=== PATIENT | female | born 1975 | race Caucasian/White ===

== ENCOUNTER 2023-05-12 14:01 | Emergency (ER) | payer OTHER ==
[2023-05-12 14:14] VITALS: TEMP 98.2
--- NOTE | 2023-05-12 14:26 | ERPHSYRPT ---
- History of Present Illness Time Seen by Provider: 05/12/23 14:02 Source: patient Exam Limitations: no limitations Patient Subjective Stated Complaint: PT states "I had a horrible headache last night and it would not go away. IT was on the left posterior christian area. I do not normally have headaches and it just felt odd. I went to the dr and my blood pressure was up and they sent me here" Triage Nursing Assessment: Pt presented alert and oriented X 3, skin pwd. Pt ambulates with an upright steady gait, able to speak in clear full sentences. PT resting comfortably on the bed at this time. Physician History: Headache posterior left side. Started last night. No history of chronic headaches. She is most worried stroke today. Went to her doctor's office and had an elevated blood pressure. Therefore sent over here. Patient's blood pressure still elevated. No history of cardiac problems she is not on any blood pressure medication. No falls or other trauma. States he does not have a history of migraines. This is all new. No fever, chills, generalized malaise. Allergies/Adverse Reactions: cephalexin monohydrate [From Mobile Messenger] Allergy (Severe, Verified 06/18/15 21:12) Difficulty Breathing Home Medications: No Reportable Medications [No Reported Medications] 02/19/21 [History] Hx Tetanus, Diphtheria Vaccination/Date Given: Yes Hx Influenza Vaccination/Date Given: No Hx Pneumococcal Vaccination/Date Given: No Immunizations Up to Date: No Travel Risk - International Travel Have you traveled outside of the country in past 3 weeks: No - Coronavirus Screening Are you exhibiting any of the following symptoms?: No Close contact with a COVID-19 positive Pt in past 14-21 Days: No - Vaccine Status Have you recieved a Covid-19 vaccination: No - Past Medical History Pertinent Past Medical History: No Neurological History: No Pertinent History ENT History: No Pertinent History Cardiac History: No Pertinent History Respiratory History: No Pertinent History Endocrine Medical History: No Pertinent History Musculoskeletal History: No Pertinent History GI Medical History: No Pertinent History History: No Pertinent History Psycho-Social History: No Pertinent History Female Reproductive Disorders: No Pertinent History - Past Surgical History Past Surgical History: No Neuro Surgical History: No Pertinent History Cardiac: No Pertinent History Respiratory: No Pertinent History Gastrointestinal: No Pertinent History Genitourinary: No Pertinent History Musculoskeletal: No Pertinent History Female Surgical History: No Pertinent History Other Surgical History: BREAST REDUCTION. eye surgery - Female History Hx Last Menstrual Period: hysterectomy Hx Now: No - Social History Smoking Status: Former smoker Exposure to second hand smoke: Yes Drug Use: none Patient Lives Alone: No - Nursing Vital Signs Nursing Vital Signs: Initial Vital Signs Temperature 98.2 F 05/12/23 14:08 Pulse Rate 77 05/12/23 14:08 Respiratory Rate 18 05/12/23 14:08 Blood Pressure 172/100 05/12/23 14:08 O2 Sat by Pulse Oximetry 98 05/12/23 14:08 Pain Scale Pain Intensity 2 - Physical Exam SpO2 Interpretation: normal SpO2: 98 Comments: 05/12/23 14:24 Review of Systems Constitutional: Negative for fever. HENT: Negative for congestion. Respiratory: Negative for shortness of breath. Cardiovascular: Negative for chest pain. Gastrointestinal: Negative for abdominal pain. Genitourinary: Negative for dysuria. Musculoskeletal: Negative for back pain. Skin: Negative for rash. Neurological: Negative for headaches. Psychiatric/Behavioral: Negative for behavioral problems. All other systems reviewed and are negative. Physical Exam Vitals signs and nursing note reviewed. Constitutional: Appearance: Patient is well-developed. HENT: Head: Normocephalic and atraumatic. Eyes: Conjunctiva/sclera: Conjunctivae normal. Neck: Musculoskeletal: Normal range of motion. Trachea: No tracheal deviation. Cardiovascular: Rate and Rhythm: Normal rate. Pulmonary: Effort: Pulmonary effort is normal. No respiratory distress. Abdominal: Palpations: Abdomen is soft. Musculoskeletal: General: No deformity. Skin: General: Skin is warm and dry. Neurological/ Psychiatric: Mental Status: Mental status, behavior, interaction with environment is appropriate for patient's age and condition Motor: There is no pronator drift of out-stretched arms. Muscle bulk and tone are normal. Strength is full bilaterally. Reflexes: Reflexes are 2+ and symmetric at the biceps, triceps, knees, and an kles. Plantar responses are flexor. Sensory: Light touch sense are intact in bilateral upper and lower extremities. There is no sign of neglect. Coordination: Rapid alternating movements are intact. There is no dysmetria on [id number] and [id number]. There are no abnormal or extraneous mov ements. Romberg is absent. Gait/Stance: Posture is normal, patient is ambultory without difficuly to bed - Course Nursing assessment & vital signs reviewed: Yes EKG Interpreted by Me: Sinus Rhythm Ordered Tests: Active Orders 24 hr Category Date Time Status EKG-ER Only STAT Care 05/12/23 14:22 Active IV Insertion STAT Care 05/12/23 14:22 Active HEAD WITHOUT CONTRAST [CT] Stat Exams 05/12/23 14:23 Completed CBC W DIFF Stat Lab 05/12/23 14:40 Completed CMP Stat Lab 05/12/23 14:40 Completed LIPASE Stat Lab 05/12/23 14:40 Completed TROPONIN Q4H Lab 05/12/23 14:40 Completed TROPONIN Q4H Lab 05/12/23 18:30 Ordered TROPONIN Q4H Lab 05/12/23 22:30 Ordered Medication Summary Discontinued Medications Generic Name Dose Route Start Last Admin Trade Name Freq PRN Reason Stop Dose Admin Diphenhydramine HCl 25 mg 05/12/23 14:22 05/12/23 14:57 Diphenhydramine Hcl 50 Mg/Ml Vial IV 05/12/23 14:23 25 mg STAT ONE Administration Diphenhydramine HCl Confirm 05/12/23 14:52 Diphenhydramine Hcl 50 Mg/Ml Vial Administered 05/12/23 14:53 Dose 50 mg .ROUTE .STK-MED ONE Droperidol 1.25 mg 05/12/23 14:22 05/12/23 14:57 Droperidol 5 Mg/2 Ml Vial IV 05/12/23 14:23 1.25 mg STAT ONE Administration Droperidol Confirm 05/12/23 14:52 Droperidol 5 Mg/2 Ml Vial Administered 05/12/23 14:53 Dose 5 mg .ROUTE .STK-MED ONE Sodium Chloride 1,000 mls @ 999 mls/hr 05/12/23 14:22 05/12/23 16:04 Sodium Chloride 0.9% 1000 Ml IV 05/12/23 15:22 Infused .Q1H1M STA Infusion Sodium Chloride Confirm 05/12/23 14:52 Sodium Chloride 0.9% 1000 Ml Administered 05/12/23 14:53 Dose 1,000 mls @ ud .ROUTE .STK-MED ONE Ketorolac Tromethamine 30 mg 05/12/23 14:22 05/12/23 14:57 Ketorolac Tromethamine 30 Mg/Ml Inj IV 05/12/23 14:23 30 mg STAT ONE Administration Ketorolac Tromethamine Confirm 05/12/23 14:52 Ketorolac Tromethamine 30 Mg/Ml Inj Administered 05/12/23 14:53 Dose 30 mg .ROUTE .STK-MED ONE Lab/Rad Data: Laboratory Result Diagrams 05/12/23 14:40 05/12/23 14:40 Laboratory Results 05/12/23 05/12/23 05/12/23 Range/Units 14:40 14:40 14:40 WBC 7.3 (4.0-10.5) x10^3/uL RBC 3.84 L (4.1-5.4) x10^6/uL Hgb 12.4 (12.0-16.0) g/dL Hct 36.1 (35-47) % MCV 94.0 (78-100) fL MCH 32.3 H (26-32) pg MCHC 34.3 (32-36) g/dL RDW 12.4 (11.5-14.0) % Plt Count 351 (150-450) x10^3/uL MPV 9.5 (7.5-11.0) fL Gran % 65.1 (36.0-66.0) % Immature Gran % (Auto) 0.3 (0.00-0.4) % Nucleat RBC Rel Count 0.0 (0.00-0.1) % Eos # (Auto) 0.08 (0-0.5) x10^3/uL Immature Gran # (Auto) 0.02 (0.00-0.03) x10^3u/L Absolute Lymphs (auto) 1.94 (1.0-4.6) x10^3/uL Absolute Monos (auto) 0.45 (0.0-1.3) x10^3/uL Absolute Nucleated RBC 0.00 (0.00-0.01) x10^3u/L Lymphocytes % 26.5 (24.0-44.0) % Monocytes % 6.2 (0.0-12.0) % Eosinophils % 1.1 (0.00-5.0) % Basophils % 0.8 (0.0-0.4) % Absolute Granulocytes 4.76 (1.4-6.9) x10^3/uL Basophils # 0.06 (0-0.4) x10^3/uL Sodium 142 (135-145) mmol/L Potassium 3.9 (3.5-5.1) mmol/L Chloride 110 H (98-107) mmol/L Carbon Dioxide 20 L (22-30) mmol/L Anion Gap 15.8 H (5-15) MEQ/L BUN 16 (7-17) mg/dL Creatinine 0.64 (0.52-1.04) mg/dL Estimated GFR 109.6 ML/MIN Glucose 116 H (74-106) mg/dL Calcium 9.0 (8.4-10.2) mg/dL Total Bilirubin 0.10 L (0.2-1.3) mg/dL AST 19 (14-36) U/L ALT 14 (0-35) U/L Alkaline Phosphatase 65 (38-126) U/L Troponin I < 0.012 (0.000-0.034) ng/mL Serum Total Protein 8.3 H (6.3-8.2) g/dL Albumin 4.3 (3.5-5.0) g/dL Lipase 120 (23-300) U/L - Progress Progress: improved Progress Note: 05/12/23 14:25 Differential diagnosis includes: PNA, STEMI, NSTEMI, other infection, musculoskeletal pain, pneumothorax, stroke - We'll obtain basic labs, fluids, EKG, troponin, chest x-ray - EKG shows no ST changes - my read - O2 saturations consistently greater than 95%. - CXR shows no pneumonia, pneumothorax - my read - head CT for acute stroke - migraine cocktail 05/12/23 16:59 Patient feels improved with migraine cocktail. Rates the headache as a 2 out of 10 at this point in time. Patient's blood pressure is improved without any antihypertensives. I do believe that improves because we treated her pain and she was more relaxed in the emergency department. Last reading was 146/88. Head CT shows no signs of stroke, intracranial issue, head bleed. Overall, patient looks much improved she will call for a ride home given that we have given her IV Benadryl and droperidol. She will follow-up with her PCP for reexam this week. She will return here sooner for any new or changing symptoms. I did discuss all results and findings with the patient. She states understanding will follow-up as described. Counseled pt/family regarding: lab results, diagnosis, need for follow-up, rad results - Departure Departure Disposition: Home Clinical Impression: Headache, Elevated blood pressure reading Condition: Stable Critical Care Time: No Referrals: DUY SINGH NP [Primary Care Provider] - Follow up/PCP as directed Instructions: Headache, Adult (DC)
[2023-05-12 14:48] LABS: Absolute Neutrophil Ct (ANC) 4.76 x10^3/uL (1.4-6.9); BASOPHIL % 0.8 % (0.0-0.4); Basophil (Absolute #) 0.06 x10^3/uL (0-0.4); Eosinophil % 1.1 % (0.00-5.0); Eosinophil (Absolute #) 0.08 x10^3/uL (0-0.5); Hematocrit 36.1 % (35-47); Hemoglobin 12.4 g/dL (12.0-16.0); IMMATURE GRAN # 0.02 x10^3u/L (0.00-0.03); IMMATURE GRAN % 0.3 % (0.00-0.4); Lymphocyte (Absolute #) 1.94 x10^3/uL (1.0-4.6); Lymphocytes % 26.5 % (24.0-44.0); Mean Corpuscular Hemoglobin 32.3 pg (26-32); Mean Corpuscular Hgb Concent. 34.3 g/dL (32-36); Mean Platelet Volume 9.5 fL (7.5-11.0); Monocyte (Absolute #) 0.45 x10^3/uL (0.0-1.3); Monocytes % 6.2 % (0.0-12.0); Neutrophil % 65.1 % (36.0-66.0); Platelet Count 351 x10^3/uL (150-450); Red Blood Count 3.84 x10^6/uL (4.1-5.4); Red Cell Distribution Width 12.4 % (11.5-14.0); White Blood Count 7.3 x10^3/uL (4.0-10.5)
[2023-05-12] MEDS ORDERED: Sodium Chloride 0.9% 1000 ML 1,000 ML ONE (14:52)
[2023-05-12] MEDS ORDERED: BENADRYL 50 MG/ML ONE (14:52)
[2023-05-12] MEDS ORDERED: TORAdol 30 mg Injection ONE (14:52)
[2023-05-12] MEDS: Sodium Chloride 0.9% 1000 ML 1,000 ML IV STA (14:56)
[2023-05-12] MEDS: TORAdol 30 mg Injection IV ONE (14:57)
[2023-05-12] MEDS: BENADRYL 50 MG/ML IV ONE (14:57)
[2023-05-12 15:00] LABS: ALBUMIN 4.3 g/dL (3.5-5.0); ANION GAP 15.8 MEQ/L (5-15); BILIRUBIN,TOTAL 0.1 mg/dL (0.2-1.3); Creatinine 1 0.64 mg/dL (0.52-1.04); EST GLOMERULAR FILTRATION RATE 109.6 ML/MIN; Potassium 3.9 mmol/L (3.5-5.1); Total Protein 8.3 g/dL (6.3-8.2)
[2023-05-12 15:03] VITALS: RESP 15
[2023-05-12 16:06] VITALS: BP 146/88; PULSE 72
--- NOTE | 2023-05-12 16:25 | XRAY ---
Indication: Headache. Elevated blood pressure. Multiple contiguous axial images obtained through the head without contrast. Comparison: None Normal appearing brain parenchyma, ventricles, and bony calvarium. Visualized paranasal sinuses and mastoid air cells are clear. Impression: Normal CT head without contrast exam.
[2023-05-12 16:47] VITALS: O2SAT 98
== END 2023-05-12 17:23 | disposition home or self-care (01) ==
LOC: ED 14:01
DX: R51.9 Headache, unspecified (principal); R03.0 Elevated blood-pressure reading, without diagnosis of hypertension; Z28.310 Unvaccinated for COVID-19
CPT/HCPCS: 36000; 36415; 70450; 80053; 83690; 84484; 85025; 93005; 96360; 96374; 96375; 99284; J1200; J1885

== ENCOUNTER 2023-10-04 20:43 | Emergency (ER) | payer OTHER ==
[2023-10-04 21:03] VITALS: TEMP 98.2; O2SAT 97
--- NOTE | 2023-10-04 21:37 | ERPHSYRPT ---
- History of Present Illness Source: patient Exam Limitations: no limitations Patient Subjective Stated Complaint: rt side facial swelling that began after eating this evening Triage Nursing Assessment: pt ambulated into ER without diff, pt alert and oriented x4. Pt c/o rt sided facial swelling from bottom of chin to top of jaw by ear, which occured approx 2 hours after eating. Pt denies eating new foods. Pt denies pain, just describes it as "tight". Pt denies any trouble swallowing or breathing. Physician History: Maxillary sinusitis right patient has some swelling in her submandibular gland it happened kind of acutely. She said she could feel it it felt like it was tingling. It is not painful. Its outside the bony structures of the mandible. There is no pharyngeal involvement. She is breathing easily swallowing easily no speech difficulties. Really minimal pain. She just got a little concerned because of how quickly it came up. It looks like a classic sialolithiasis. There is no evidence of angioedema or anything like that. It does not appear to be allergic. Allergies/Adverse Reactions: cephalexin monohydrate [From PerspecSys] Allergy (Severe, Verified 10/04/23 21:10) Difficulty Breathing Home Medications: No Reportable Medications [No Reported Medications] 02/19/21 [History] Hx Tetanus, Diphtheria Vaccination/Date Given: Yes Hx Influenza Vaccination/Date Given: No Hx Pneumococcal Vaccination/Date Given: No Travel Risk - International Travel Have you traveled outside of the country in past 3 weeks: No - Emerging Infectious Disease Are you exhibiting symptoms associated with any current EIDs: No - Review of Systems Constitutional: No Symptoms Eyes: No Symptoms Respiratory: No Symptoms All Other Systems: Reviewed and Negative - Past Medical History Pertinent Past Medical History: Yes Neurological History: No Pertinent History ENT History: No Pertinent History Cardiac History: Other Respiratory History: No Pertinent History Endocrine Medical History: No Pertinent History Musculoskeletal History: No Pertinent History GI Medical History: No Pertinent History History: No Pertinent History Psycho-Social History: No Pertinent History Female Reproductive Disorders: No Pertinent History Other Medical History: mitral valve prolapse/murmur - Past Surgical History Past Surgical History: Yes Neuro Surgical History: No Pertinent History Cardiac: No Pertinent History Respiratory: No Pertinent History Gastrointestinal: No Pertinent History Genitourinary: No Pertinent History Musculoskeletal: No Pertinent History Female Surgical History: Hysterectomy Other Surgical History: BREAST REDUCTION. eye surgery x2. liposuction - Female History Hx Last Menstrual Period: . Hx Now: No - Social History Smoking Status: Former smoker Exposure to second hand smoke: Yes Drug Use: none Patient Lives Alone: No - Social Determinants of Health Will the patient participate in the screening: Yes Do you worry about a steady place to live?: No Do you have any problems with any of the following?: No known problems In the past 12 months,have you had to go without utilities?: No Transportation Issues: No Has anyone in your support network made you feel unsafe?: No Have you or anyone in your house had to go without enough: No - Nursing Vital Signs Nursing Vital Signs: Initial Vital Signs Temperature 98.2 F 10/04/23 21:02 Pulse Rate 79 10/04/23 21:02 Respiratory Rate 17 10/04/23 21:02 Blood Pressure 181/111 10/04/23 21:02 O2 Sat by Pulse Oximetry 97 10/04/23 21:02 Pain Scale Pain Intensity 0 - Physical Exam General Appearance: no apparent distress Eye Exam: PERRL/EOMI Ears, Nose, Throat Exam: other (Some mild edema in the right submandibular ) Respiratory Exam: normal breath sounds SpO2: 97 - Course Nursing assessment & vital signs reviewed: Yes - Progress Progress: unchanged Progress Note: 10/04/23 21:37 Patient was stable throughout stay. It appears to be sialolithiasis. There is no evidence of pharyngeal obstruction. I think that she is stable to go home with traditional treatments of tart candy food and I told her she could try heating pad if she wanted. She does not require antibiotics. On the differential was sialolithiasis, adenitis, pharyngitis Medical Desision Making - Diagnostic Testing Diagnostic test were ordered, analyzed, and reviewed by me: No - Risk of complications Minimal Risk: Minimal risk of morbidity - Departure Departure Disposition: Home Clinical Impression: Sialolithiasis of submandibular gland Condition: Stable Critical Care Time: No Referrals: DUY SINGH NP [Primary Care Provider] - Follow up/PCP as directed
[2023-10-04 21:49] VITALS: BP 166/116; PULSE 76; RESP 18
== END 2023-10-04 21:49 | disposition home or self-care (01) ==
LOC: ED 20:43
DX: K11.5 Sialolithiasis (principal)
CPT/HCPCS: 99281

== ENCOUNTER 2024-02-05 14:51 | Observation (INO) | payer OTHER ==
[~2024-02-05 14:51] MED LIST: Levofloxacin 500MG/100ML D5W 500 MG/100 ML BAG IV ONE
[2024-02-05] MEDS ORDERED: MORPHINE SULFATE 4 MG INJ IV PRN (15:46)
[2024-02-05] MEDS ORDERED: MORPHINE SULFATE 2 MG INJ IV PRN (15:46)
[2024-02-05] MEDS ORDERED: Zofran 4 MG/2 ML VIAL IV PRN (15:47)
[2024-02-05 16:10] LABS: ALBUMIN 4.5 g/dL (3.5-5.0); ANION GAP 9.1 MEQ/L (5-15); BILIRUBIN,TOTAL 0.3 mg/dL (0.2-1.3); Creatinine 1 0.65 mg/dL (0.52-1.04); EST GLOMERULAR FILTRATION RATE 109.2 ML/MIN; Potassium 3.5 mmol/L (3.5-5.1); Total Protein 8.3 g/dL (6.3-8.2)
[2024-02-05 16:20] LABS: Hematocrit 36.6 % (34.1-44.9); Hemoglobin 12.2 g/dL (11.2-15.7); Mean Corpuscular Hemoglobin 30.3 pg (25.6-32.2); Mean Corpuscular Hgb Concent. 33.3 g/dL (32.2-35.5); Mean Platelet Volume 10.2 fL (9.4-12.3); Platelet Count 331 x10^3/uL (182-369); Red Blood Count 4.02 x10^6/uL (3.93-5.22); Red Cell Distribution Width 12.4 % (11.7-14.4); White Blood Count 8.7 x10^3/uL (3.98-10.04)
[2024-02-05] MEDS: PIPERACILLIN/TAZOBACTAM 3.375 GM in Sodium Chloride 100ML MINI-BAG PLUS 100 ML IV SCH (17:36)
[2024-02-05 19:10] LABS: Appearance Clear (Clear); Bacteria None Seen /HPF (None Seen); Bilirubin Negative (Negative); Blood Negative (Negative); Epithelial Cells None Seen /HPF (None Seen); Glucose, Urine Negative (Negative); Hyaline Casts NONE SEEN /LPF (0-2); Ketones Negative (Negative); Leukocyte Esterase Negative (Negative); Nitrite Negative (Negative); Protein,Urine Dip Negative (Negative); RBC 0-2 /HPF (0-5); Urobilinogen 0.2 mg/dL (0.2); WBC 0-2 /HPF (0-5)
[2024-02-05 20:24] VITALS: RESP 16
[2024-02-05] MEDS: Lactated Ringers 1,000 ML IV SCH (23:58)
[2024-02-06] MEDS: Reglan 10 MG/2 ML IV SCH (04:22)
[2024-02-06] MEDS: Pepcid 20 MG VIAL IV SCH (04:22)
[2024-02-06] MEDS: Transderm Scop 1.5MG Patch TOP SCH (04:22)
[2024-02-06] MEDS ORDERED: Sensorcaine 0.25% 10 ML ONE (05:37)
[2024-02-06] MEDS ORDERED: Sodium Chloride 0.9% 1000 ML 1,000 ML ONE (05:38)
[2024-02-06] MEDS ORDERED: SUBLIMAZE 100 MCG/2 ML ONE ×2 (05:39→06:54)
[2024-02-06] MEDS ORDERED: Versed 2 MG/2 ML Injection ONE (05:39)
[2024-02-06] MEDS ORDERED: ROCURONIUM BROMIDE IV ONE (05:39)
[2024-02-06] MEDS ORDERED: DIPRIVAN 200 MG/20 ML IV ONE (05:39)
[2024-02-06] MEDS ORDERED: Quelicin Fliptop 200 MG/10 ML ONE (05:39)
--- NOTE | 2024-02-06 06:21 | PCM.HP ---
History of Present Illness - Chief Complaint Chief Complaint: Appendicitis History of Present Illness: is a 48 year old female. 48yo pmh hysterectomy lipo breast reduction. no medical problems doesn't take any meds other than the occasional ibuprofen. nonsmoker. no etoh. no illicits. last week and a half felt a little bad pain lower abd radiating to back yesterday worse with moving around. to primary CT. found to have appendicolith base of appendix also a couple nonobstructive kidney stones. not any gross hematuria maybe a little chilled. maybe has had some on and off symtoms for some time now. no n/v. direct admit to hospital for possible appy. overnight pain a little better kind of similar. - Review of Systems All Other Systems: Reviewed and Negative Medications & Allergies Home Medications: Home Medication List Ibuprofen [Ibu] 600 mg PO BIDPRN PRN 02/05/24 [History Confirmed 02/05/24] Allergies/Adverse Reactions: Allergies Allergy/AdvReac Type Severity Reaction Status Date / Time cephalexin monohydrate Allergy Severe Difficulty Verified 02/05/24 15:11 [From Keflex] Breathing - Past Medical History Past Medical History: Yes Neurological History: No Pertinent History ENT History: No Pertinent History Cardiac History: Other Respiratory History: No Pertinent History Endocrine Medical History: No Pertinent History Musculoskelatal History: Fractures GI Medical History: No Pertinent History History: No Pertinent History Pyscho-Social History: No Pertinent History Reproductive Disorders: No Pertinent History Comment: mitral valve prolapse/murmur - Female History Hx Last Menstrual Period: . Are you now?: No - Past Surgical History Past Surgical History: Yes Neuro Surgical History: No Pertinent History Cardiac History: No Pertinent History Respiratory Surgery: No Pertinent History GI Surgical History: No Pertinent History Genitourinary Surgical Hx: No Pertinent History Musculskeletal Surgical Hx: No Pertinent History Female Surgical History: Hysterectomy Other Surgical History: BREAST REDUCTION. eye surgery x2. liposuction - Social History Smoking Status: Former smoker How long have you smoked: 10+ Exposure to second hand smoke: No Alcohol: None Drug Use: none - Social Determinants of Health Will the patient participate in the screening: Yes Do you worry about a steady place to live?: No Do you have any problems with any of the following?: No known problems In the past 12 months,have you had to go without utilities?: No Have you or anyone in your house had to go without enough: No Transportation Issues: No Has anyone in your support network made you feel unsafe?: No Does the patient want assistance with any of the above?: No - Physical Exam Vital Signs: Vital Signs - 24 hr Temp Pulse Resp BP Pulse Ox 02/06/24 04:30 98.6 F 62 16 155/86 98 02/06/24 04:00 98.5 F 61 16 140/84 98 02/05/24 23:55 98.6 F 62 16 155/86 98 02/05/24 20:00 97.4 F 69 16 156/83 98 02/05/24 15:19 98.2 F 82 18 171/93 94 L Additional Findings: 02/06/24 06:18 nad no scleral icterus nec ksymmetric nonlabed resps rrr nd, soft, mod ttp suprapubic no r/g. no edema Results - Labs Lab/Micro Results: Lab Results-Last 24 Hours 02/05/24 02/05/24 02/05/24 Range/Units 15:55 15:55 19:02 WBC 8.7 (3.98-10.04) x10^3/uL RBC 4.02 (3.93-5.22) x10^6/uL Hgb 12.2 (11.2-15.7) g/dL Hct 36.6 (34.1-44.9) % MCV 91.0 (79.4-94.8) fL MCH 30.3 (25.6-32.2) pg MCHC 33.3 (32.2-35.5) g/dL RDW 12.4 (11.7-14.4) % Plt Count 331 (182-369) x10^3/uL MPV 10.2 (9.4-12.3) fL Sodium 137 (135-145) mmol/L Potassium 3.5 (3.5-5.1) mmol/L Chloride 108 H (98-107) mmol/L Carbon Dioxide 23 (22-30) mmol/L Anion Gap 9.1 (5-15) MEQ/L BUN 14 (7-17) mg/dL Creatinine 0.65 (0.52-1.04) mg/dL Estimated GFR 109.2 ML/MIN Glucose 118 H (74-106) mg/dL Calcium 9.0 (8.4-10.2) mg/dL Total Bilirubin 0.30 (0.2-1.3) mg/dL AST 26 (14-36) U/L ALT 17 (0-35) U/L Alkaline Phosphatase 57 (38-126) U/L Serum Total Protein 8.3 H (6.3-8.2) g/dL Albumin 4.5 (3.5-5.0) g/dL Lipase 83 (23-300) U/L Urine Color Yellow (Yellow) Urine Appearance Clear (Clear) Urine pH 8.0 (4.6-8.0) Ur Specific Pollock 1.020 (1.005-1.030) Urine Protein Negative (Negative) Urine Glucose (UA) Negative (Negative) mg/dL Urine Ketones Negative (Negative) Urine Blood Negative (Negative) Urine Nitrite Negative (Negative) Urine Bilirubin Negative (Negative) Urine Urobilinogen 0.2 (0.2) mg/dL Ur Leukocyte Esterase Negative (Negative) U Hyaline Cast (Auto) NONE SEEN (0-2) /LPF Urine Microscopic RBC 0-2 (0-5) /HPF Urine Microscopic WBC 0-2 (0-5) /HPF Ur Epithelial Cells None Seen (None Seen) /HPF Urine Bacteria None Seen (None Seen) /HPF Urine Culture Reflexed NO (NO) Assessment/Plan (1) Appendicitis Current Visit: Yes Status: Acute Assessment & Plan: 48yo with abdominal pain radiating to back more consistent with nephrolithiasis also visualized on ct no blood in UA but does have lower abdominal pain and ct images personally reviewed with appendicolith at the base of the appendix mild dilation. denton discussion with patient her symptoms are more consistent with NOT acute appendicitis but with the appendicolith and abnormal findings appendectomy would be prudent. discussed with her risks and benefits of that and she does want to proceed with appendectomy. -lap appy possible open. Code(s): K37 - UNSPECIFIED APPENDICITIS
[2024-02-06] MEDS ORDERED: BRIDION 200MG/2ML IV ONE (06:37)
[2024-02-06] MEDS ORDERED: Lactated Ringers 1,000 ML IV ONE (06:37)
[2024-02-06] MEDS ORDERED: TORAdol 30 mg Injection ONE (06:37)
[2024-02-06] MEDS ORDERED: Zofran 4 MG/2 ML VIAL ONE (06:37)
[2024-02-06 07:52] VITALS: TEMP 97.9
[2024-02-06] MEDS ORDERED: MOTRIN 600 MG PO PRN (08:18)
[2024-02-06 09:16] VITALS: O2SAT 97
[2024-02-06 14:33] VITALS: BP 144/84; PULSE 82
--- NOTE | 2024-02-07 15:47 | OP ---
SURGERY DATE/TIME: 02/06/2024 PREOPERATIVE DIAGNOSIS: Appendicitis. POSTOPERATIVE DIAGNOSIS: Nonperforated appendicitis. PROCEDURE: Laparoscopic appendectomy. SURGEON: Montana Felton MD. ANESTHESIA: General. ESTIMATED BLOOD LOSS: Minimal. PATIENT CONDITION: Stable. COMPLICATIONS: None. SPECIMENS: Appendix. INDICATIONS: The patient is a 48-year-old who for a week and a half has not felt normal, who was having abdominal pain radiating to the back that did improve but then got worse. Then went to primary who got a CT scan revealing appendicolith at the base of the appendix concerning for early appendicitis, also with a couple nephrolithiases, nonobstructive. She was directly admitted to the hospital, evaluated. Her white count is normal. She is mildly tender suprapubic. UA is negative. A discussion was had with the patient with the fecalith at the appendix base I do recommend appendectomy. It is not classic for acute appendicitis and it could be subacute appendicitis or more the kidney stones. Risk of infection, bleeding, injury to nearby structure, hernia, negative examination discussed with the patient. She does want to proceed with appendectomy. FINDINGS: Nonperforated mildly injected, probably subacute appendicitis. DESCRIPTION OF PROCEDURE AND FINDINGS: Patient brought to the operating room. General anesthesia induced. Routinely positioned, prepped and draped. Time-out performed. Received a preoperative antibiotic. Veress needle inserted in the left upper quadrant. Pneumoperitoneum was established. A 5 mm Optiview trocar placed in left lower quadrant. A 12 mm supraumbilical trocar placed. A 5 mm suprapubic trocar placed. Abdomen was surveilled. The right ovary has a physiologic functional cyst. The sigmoid colon is mildly adherent to the pelvic wall. Left ovary not visualized. The appendix is mildly injected with fullness at the base. The mesentery is taken with LigaSure. The base is taken with a white load of SHAHLA stapler. That is totally satisfactory, hemostatic, healthy staple line. Placed in a bag and removed through the 12 trocar site. Marcaine had been injected in all the port sites. The 12 trocar closed with 0 Vicryl interrupted suture passer. Trocars were removed. Skin was closed with 4-0 Vicryl suture. Steri-Strips and sterile dressing were applied. All counts were correct. Patient tolerated the procedure well. RECOMMENDATIONS: Discharge when discharge criteria are met. Followup in office within 2 weeks.
--- NOTE | 2024-02-07 15:48 | DS ---
DISCHARGE SUMMARY DISCHARGE DIAGNOSIS: Acute appendicitis, nonperforated. PROCEDURE PERFORMED: Laparoscopic appendectomy. HISTORY: Patient is a 48-year-old female who presents with abdominal pain and imaging showing an appendicolith at the base of the appendix, also a couple nephrolithiases, nonobstructive. UA is normal. White count is normal. Moderately tender on exam without peritonitis. HOSPITAL COURSE: The patient is admitted. Discussed with the patient exploration. She was taken to the operating room for appendectomy, which just shows a mildly injected appendix, probably subacute appendicitis. Postoperatively, she did well. She is discharged home tolerating p.o., ambulating, and pain controlled. DISCHARGE INSTRUCTIONS: Patient is to follow up in 2 weeks in the office.
== END 2024-02-06 14:57 | disposition home or self-care (01) ==
LOC: MED SURG 14:51 → INTOOBSV 14:51 → UNDOADMOB 14:51 → MED SURG 14:51
PROVIDERS: ADMIT Surgery; ATTEND Surgery
DX: K35.80 Unspecified acute appendicitis (principal)
CPT/HCPCS: 36415; 80053; 81001; 83690; 85027; G0378; J0330; J1885; J1956; J2250; J2405; J2704; J3010; A9270-GY

== ENCOUNTER 2024-04-29 10:58 | Day surgery (SDC) | payer OTHER ==
[2024-04-29] MEDS: Lactated Ringers 1,000 ML IV SCH (11:24)
[2024-04-29 11:25] VITALS: RESP 18
[2024-04-29 11:40] LABS: ANION GAP 17.9 MEQ/L (5-15); Calcium 8.8 mg/dL (8.4-10.2); Creatinine 1 0.65 mg/dL (0.52-1.04); EST GLOMERULAR FILTRATION RATE 108.5 ML/MIN; Potassium 3.7 mmol/L (3.5-5.1)
[2024-04-29 15:42] VITALS: TEMP 97.4; O2SAT 95
[2024-04-29 16:00] VITALS: BP 155/96; PULSE 72
--- NOTE | 2024-05-03 11:04 | OP ---
SURGERY DATE/TIME: 04/29/2024 [id number] PREOPERATIVE DIAGNOSES: Patient has known moderate symptomatic hemorrhoids. She has positive Cologuard. POSTOPERATIVE DIAGNOSIS: Patient has known moderate symptomatic hemorrhoids. She has positive Cologuard. PROCEDURES: 1. Colonoscopy. 2. Hemorrhoidectomy. DESCRIPTION OF PROCEDURE AND FINDINGS: She was taken to surgery. The scope was placed first. Anal digital examination, there was severe posterior hemorrhoid. Rectum was normal. Scope was advanced over to the cecum. Base of cecum, ileocecal valve, appendiceal orifice was normal. Ascending, hepatic, transverse, splenic, descending, sigmoid, rectum, anus. Did not see anything to absolutely confirm the Cologuard. I am sure we will see something in the future. We will put her in the 2-year re-scope as we did not see anything, but these Cologuard usually do have something appear in the near future if not on this day. She did have a very mild colitis, and we did take 1 hot biopsy. Hemorrhoids at 5 and 7 were taken out with a base suture, internal hemorrhoidal clamp, external clamp, external [id number] sutures, internal [id number] suture. This was repeated at 7 o'clock. There was a little wisp of hemorrhoidal disease at 11 and 9 o'clock which is important at this time. Patient tolerated the procedure satisfactorily.
== END 2024-04-29 16:00 | disposition home or self-care (01) ==
LOC: SDC 10:58
PROVIDERS: ATTEND Surgery
DX: R19.5 Other fecal abnormalities (principal); K64.4 Residual hemorrhoidal skin tags; K52.9 Noninfective gastroenteritis and colitis, unspecified
CPT/HCPCS: 36415; 80048; 93005; J0666; J1100; J2405; J2704; J3010